=== PATIENT | male | born 1935 ===

== ENCOUNTER 2017-08-08 18:57 | Emergency (ER) | payer MEDICARE, BC ==
[2017-08-08 19:20] VITALS: BP 70/49
[2017-08-08] MEDS ORDERED: Sodium Chloride 0.9% 1,000 ML IV ONE (20:14)
[2017-08-08] MEDS ORDERED: Sodium Chloride 0.9% 500 ML IV SCH (20:15)
--- NOTE | 2017-08-08 20:15 | EDM.PDOC ---
ED HPI GENERAL MEDICAL PROBLEM - General Chief Complaint: Neurological Problem Stated Complaint: CAN'T WALK SICK [id number] Time Seen by Provider: 08/08/17 20:10 Source of Information: Reports: Patient, Family History Limitations: Reports: No Limitations - History of Present Illness INITIAL COMMENTS - FREE TEXT/NARRATIVE: pt states been out working in yard suddenly got dizzy felt weak & disoriented no C/P/SOB/VAL[place]INO. family states pt was talking to them but had to help him to the car. presently pt states he feels fine. takes no Rx and states his BP has been lower than normal all his life and has been asked about it before. family states pt been out in the hot sun doing yard work all day and don't know if he' s been drinking enough fluids. Left Shoulder Pain Score (Numeric/FACES): 5 - Related Data Allergies Allergy/AdvReac Type Severity Reaction Status Date / Time No Known Allergies Allergy Verified 08/08/17 19:38 Home Meds: Home Meds . [No Known Home Meds] 08/08/17 [History] Past Medical History Other HEENT History: Nose bleed. Musculoskeletal History: Reports: Arthritis Other Musculoskeletal History: physical therapy for back - Past Surgical History Other GI Surgeries/Procedures: polups removed Social & Family History - Tobacco Use Smoking Status *Q: Never Smoker Second Hand Smoke Exposure: No - Recreational Drug Use Recreational Drug Use: No - Living Situation & Occupation Living situation: Reports: , Alone Occupation: Retired ED ROS GENERAL - Review of Systems Review Of Systems: ROS reveals no pertinent complaints other than HPI. ED EXAM, NEURO - Physical Exam Exam: See Below Exam Limited By: No Limitations General Appearance: Alert, WD/WN, No Apparent Distress Eye Exam: Bilateral Eye: PERRL (pupils ER @ 4mm) Ears: Hearing Grossly Normal Throat/Mouth: Normal Voice, No Airway Compromise Head Exam: Atraumatic Neck: Non-Tender, Full Range of Motion Respiratory/Chest: No Respiratory Distress Cardiovascular: Regular Rate, Rhythm GI/Abdominal: Soft, Non-Tender Neurological: Alert, Normal Mood/Affect, Normal Gait, No Motor/Sensory Deficits , Oriented x 3 Psychiatric: Normal Affect, Normal Mood Skin Exam: Warm, Dry, Normal Color Course - Vital Signs Last Recorded V/S: Last Vital Signs Temp 36.5 C 08/08/17 19:14 Pulse 82 08/08/17 19:14 Resp 18 08/08/17 19:14 BP 70/49 L 08/08/17 19:14 Pulse Ox 96 08/08/17 19:14 Orthostatic Blood Pressure [ 93/48 Standing] Orthostatic Blood Pressure [ 89/60 Sitting] Orthostatic Blood Pressure [ 99/55 Supine] - Orders/Labs/Meds Orders: Active Orders 24 hr Category Date Time Status EKG Documentation Completion [RC] STAT Care 08/08/17 19:36 Active Sodium Chloride 0.9% [Normal Saline] 1,000 ml Med 08/08/17 20:14 Active IV .BOLUS Medication Orders Sodium Chloride (Normal Saline) 1,000 mls @ 999 mls/hr IV .BOLUS ONE Stop: 08/08/17 21:14 Last Admin: 08/08/17 20:15 Dose: 999 mls/hr Labs: Laboratory Tests 08/08/17 08/08/17 Range/Units 19:35 19:55 WBC 6.8 (5.0-10.0) 10^3/uL RBC 3.98 L (4.6-6.2) 10^6/uL Hgb 12.9 L (14.0-18.0) g/dL Hct 39.3 L (40.0-54.0) % MCV 98.7 (80-100) fL MCH 32.4 (27.0-34.0) pg MCHC 32.8 L (33.0-35.0) g/dL Plt Count 209 (150-450) 10^3/uL Neut % (Auto) 63.9 (42.2-75.2) % Lymph % (Auto) 23.0 (20.5-50.1) % [place] % (Auto) 7.5 (2-8) % Eos % (Auto) 5.0 H (1.0-3.0) % Baso % (Auto) 0.6 (0.0-1.0) % Sodium 137 (135-145) mmol/L Potassium 3.7 (3.6-5.0) mmol/L Chloride 107 (101-111) mmol/L Carbon Dioxide 22.0 (21.0-31.0) mmol/L Anion Gap 11.7 BUN 15 (7-18) mg/dL Creatinine 1.4 H (0.6-1.3) mg/dL Est Cr Clr Drug Dosing 37.22 mL/min Estimated GFR (MDRD) 49 BUN/Creatinine Ratio 10.71 Glucose 126 H (74-105) mg/dL Calcium 8.6 (8.4-10.2) mg/dl Total Bilirubin 0.4 (0.2-1.0) mg/dL AST 24 (10-42) IU/L ALT 20 (10-60) IU/L Alkaline Phosphatase 89 (42-121) IU/L Total Protein 7.0 (6.7-8.2) g/dl Albumin 3.6 (3.2-5.5) g/dl Globulin 3.4 Albumin/Globulin Ratio 1.06 Meds: Medications Generic Name Dose Route Start Last Admin Trade Name Freq PRN Reason Stop Dose Admin Sodium Chloride 1,000 mls @ 999 mls/hr 08/08/17 20:14 08/08/17 20:15 Normal Saline IV 08/08/17 21:14 999 mls/hr .BOLUS ONE Administration Discontinued Medications Generic Name Dose Route Start Last Admin Trade Name Freq PRN Reason Stop Dose Admin Sodium Chloride 500 mls @ 999 mls/hr 08/08/17 20:15 Normal Saline IV .BOLUS SUKHDEV - Re-Assessments/Exams Free Text/Narrative Re-Assessment/Exam: 08/08/17 20:48 re-exam; still feels good. Departure - Departure Time of Disposition: 20:49 Disposition: Home, Self-Care 01 Condition: Good Clinical Impression: TIA (transient ischemic attack) Qualifiers: Transient cerebral ischemia type: unspecified Qualified Code(s): G45.9 - Transient cerebral ischemic attack, unspecified - Discharge Information Instructions: Transient Ischemic Attack, [id number] Forms: ED Department Discharge Additional Instructions: 1) rest and avoid straining bending lifting next 48 hours 2) see clinic or family doctor Thursday for follow up 3) recheck if there is any change or concern 4) may take aspirin 81mg daily until see clinic - My Orders Last 24 Hours: My Active Orders 08/08/17 19:36 EKG Documentation Completion [RC] STAT 08/08/17 20:14 Sodium Chloride 0.9% [Normal Saline] 1,000 ml IV .BOLUS - Assessment/Plan Last 24 Hours: My Active Orders 08/08/17 19:36 EKG Documentation Completion [RC] STAT 08/08/17 20:14 Sodium Chloride 0.9% [Normal Saline] 1,000 ml IV .BOLUS
--- NOTE | 2017-08-11 08:14 | EKG ---
08[facility]08/2017- [facility]: EKG per my reading, shows sinus rhythm at the rate of 83. MOD /[id number]
== END 2017-08-08 20:59 | disposition home or self-care (01) ==
LOC: DL.ED 18:57
DX: G45.9 Transient cerebral ischemic attack, unspecified (principal)
CPT/HCPCS: 36415; 70450; 80053; 85025; 93005; 93010; 96360; 99284; J7030

== ENCOUNTER 2021-10-12 11:01 | Emergency (ER) | payer MEDICARE, BC ==
[2021-10-12 12:24] VITALS: BP 168/89; PULSE 81
== END 2021-10-12 12:39 | disposition home or self-care (01) ==
LOC: DL.ED 11:01
DX: H10.12 Acute atopic conjunctivitis, left eye (principal)
CPT/HCPCS: 99282

== ENCOUNTER 2022-10-13 00:40 | Inpatient (IN) | payer MEDICARE, BC ==
[2022-10-13] MEDS ORDERED: Dexamethasone 4 MG/ML SDV IVPUSH ONE (01:02)
[2022-10-13] MEDS ORDERED: Albuterol/Ipratropium 3.0-0.5 MG/3 ML Neb Soln NEB ONE ×3 (01:02→01:03)
[2022-10-13] MEDS ORDERED: Benzonatate 100 MG Cap PO ONE (01:03)
[2022-10-13] MEDS ORDERED: guaiFENesin/Dextromethorphan 100-10 MG/5 ML Soln 5 ML Cup PO ONE (01:03)
[2022-10-13 01:24] LABS: BASOPHILS PERCENT AUTO 0.7 % (0.0-1.0); EOSINOPHILS PERCENT AUTO 18.4 % (1.0-3.0); HEMATOCRIT 41.1 % (40.0-54.0); HEMOGLOBIN 13.2 g/dL (14.0-18.0); LYMPHOCYTES PERCENT AUTO 20.1 % (20.5-50.1); MEAN CORPUSCULAR HEMOGLOBIN 30.6 pg (27.0-34.0); MEAN CORPUSCULAR HGB CONC 32.1 g/dL (33.0-35.0); MEAN CORPUSCULAR VOLUME 95.4 fL (80-100); MONOCYTES PERCENT AUTO 9.1 % (2-8); NEUTROPHILS PERCENT AUTO 51.7 % (42.2-75.2); PLATELET COUNT,PLT 218 10^3/uL (150-450); RED BLOOD CELL COUNT 4.31 10^6/uL (4.6-6.2); WHITE BLOOD CELL COUNT,WBC 9.2 10^3/uL (5.0-10.0)
[2022-10-13 01:34] LABS: O2 DELIVERY DEVICE ROOM AIR
[2022-10-13 01:35] LABS: BASE EXCESS ARTERIAL -4 mmol/L ((-2)-(+3)); BICARBONATE,ARTERIAL 21.3 mmol/L (22-26); O2 SATURATION ARTERIAL 98 % (95-100); PCO2 ARTERIAL 41 mmHg (35-45); PH,ARTERIAL 7.33 (7.35-7.45); PO2 ARTERIAL 93 mmHg (70-100)
[2022-10-13 01:36] LABS: ALLEN TEST POSITIVE
[2022-10-13 01:44] LABS: BLOOD UREA NITROGEN,BUN 14 mg/dL (7-18); CALCIUM 9.1 mg/dL (8.5-10.1); CARBON DIOXIDE,CO2 26 mmol/L (21-32); CHLORIDE,CL 103 mmol/L (98-107); CREATININE 1.39 mg/dL (0.70-1.30); GLUCOSE RANDOM 109 mg/dL (70-99); SODIUM,NA 139 mmol/L (136-145)
[2022-10-13 01:47] LABS: ESTIMATED GFR 50 mL/min (>=60)
[2022-10-13 01:50] LABS: B-TYPE NATRIURETIC PEPTIDE,BNP 68 pg/ml (0-100)
[2022-10-13] MEDS ORDERED: Levofloxacin/Dextrose 5%-Water 750 MG in Premix Bag 1 BAG IV ONE (03:59)
[2022-10-13] MEDS ORDERED: Morphine 2 MG/ML SYRINGE IVPUSH ONE (06:06)
[2022-10-13] MEDS ORDERED: Naloxone 2 MG/2 ML Syringe IVPUSH PRN (06:06)
[2022-10-13] MEDS ORDERED: Acetaminophen 325 MG Tab PO PRN (06:21)
[2022-10-13] MEDS ORDERED: Acetaminophen/HYDROcodone 325-5 MG Tab PO PRN (06:21)
[2022-10-13] MEDS ORDERED: Sodium Chloride 0.9% 10 ML Syringe FLUSH PRN (06:24)
[2022-10-13] MEDS ORDERED: Ondansetron 4 MG/2 ML SDV IVPUSH PRN (06:24)
[2022-10-13] MEDS ORDERED: Polyethylene Glycol 3350 Powder 17 GM Packet PO PRN (06:24)
[2022-10-13] MEDS ORDERED: Albuterol/Ipratropium 3.0-0.5 MG/3 ML Neb Soln NEB PRN (06:24)
[2022-10-13] MEDS: methylPREDNISolone Sodium Succinate 125 MG/2 ML SDV IVPUSH SCH ×4 (06:24→23:34)
[2022-10-13] MEDS ORDERED: Magnesium Hydroxide 400 MG/5 ML Susp 30 ML Cup PO PRN (06:24)
[2022-10-13] MEDS ORDERED: Morphine 2 MG/ML SYRINGE IVPUSH PRN (06:24)
[2022-10-13] MEDS ORDERED: Sennosides/Docusate Sodium 50-8.6 MG Tab PO PRN (06:24)
[2022-10-13] MEDS ORDERED: Metoprolol Tartrate 5 MG/5 ML SDV IVPUSH PRN (06:28)
[2022-10-13] MEDS ORDERED: Acetylcysteine 20% 200 MG/ML 30 ML Nebulizer Soln SDV INH SCH (09:00)
[2022-10-13] MEDS: guaiFENesin 600 MG Tab.ER PO SCH ×2 (10:07→20:09)
[2022-10-13] MEDS: cefTRIAXone 1 GM Vial IVPUSH SCH (10:07)
[2022-10-13] MEDS: Azithromycin 500 MG in Sodium Chloride 0.9% 250 ML IV SCH (10:08)
[2022-10-13] MEDS: Sodium Chloride 0.9% 10 ML Syringe FLUSH SCH ×2 (10:12→20:30)
[2022-10-13] MEDS: Albuterol/Ipratropium 3.0-0.5 MG/3 ML Neb Soln NEB SCH ×4 (10:57→23:31)
[2022-10-13] MEDS: Acetylcysteine 20% 200 MG/ML 30 ML Nebulizer Soln SDV INH SCH ×2 (15:08→18:36)
[2022-10-13] MEDS: Montelukast 10 MG Tab PO SCH (20:09)
[2022-10-13] MEDS: Melatonin 3 MG Tab PO PRN (20:09)
[2022-10-13] MEDS: Formoterol/Mometasone 200-5 MCG 8.8 GM Inhaler IH SCH (20:13)
[2022-10-13] MEDS: Brimonidine 0.2% Ophth Soln 5 ML Bottle EYEBOTH SCH (20:14)
[2022-10-13] MEDS: Dorzolamide/Timolol 2%-0.5% Ophth Soln 10 ML Bottle EYEBOTH SCH (20:15)
[2022-10-13] MEDS ORDERED: diphenhydrAMINE 50 MG/ML SDV IVPUSH SCH (21:00)
[2022-10-13] MEDS ORDERED: Non-Formulary Medication 1 Each (Budesonide/Formoterol 6 GM Inhaler) INH SCH (21:00)
[2022-10-14] MEDS: Albuterol/Ipratropium 3.0-0.5 MG/3 ML Neb Soln NEB SCH ×5 (03:33→20:29)
[2022-10-14 06:10] LABS: BASOPHILS PERCENT AUTO 0.1 % (0.0-1.0); HEMATOCRIT 36.4 % (40.0-54.0); HEMOGLOBIN 12.1 g/dL (14.0-18.0); LYMPHOCYTES PERCENT AUTO 5.3 % (20.5-50.1); MEAN CORPUSCULAR HEMOGLOBIN 30.9 pg (27.0-34.0); MEAN CORPUSCULAR HGB CONC 33.2 g/dL (33.0-35.0); MEAN CORPUSCULAR VOLUME 93.1 fL (80-100); MONOCYTES PERCENT AUTO 2.3 % (2-8); NEUTROPHILS PERCENT AUTO 92.3 % (42.2-75.2); PLATELET COUNT,PLT 208 10^3/uL (150-450); RED BLOOD CELL COUNT 3.91 10^6/uL (4.6-6.2); WHITE BLOOD CELL COUNT,WBC 12.8 10^3/uL (5.0-10.0)
[2022-10-14 06:36] LABS: ALANINE AMINOTRANSFERASE,ALT 20 U/L (16-63); ALKALINE PHOSPHATASE 88 U/L (46-116); ANION GAP 12.4 mEq/L (7-13); ASPARTATE AMNIOTRANSFERASE,AST 18 U/L (15-37); BILIRUBIN TOTAL 0.7 mg/dL (0.2-1.0); BLOOD UREA NITROGEN,BUN 20 mg/dL (7-18); CARBON DIOXIDE,CO2 27 mmol/L (21-32); CHLORIDE,CL 102 mmol/L (98-107); CREATININE 1.54 mg/dL (0.70-1.30); EST CRCL DRUG DOSING (CG) 30.51 mL/min; GLUCOSE RANDOM 148 mg/dL (70-99); MAGNESIUM 2.2 mg/dL (1.8-2.4); POTASSIUM,K 4.4 mmol/L (3.5-5.1); SODIUM,NA 137 mmol/L (136-145)
[2022-10-14 07:27] LABS: ESTIMATED GFR 44 mL/min (>=60)
[2022-10-14 07:28] LABS: A/G RATIO 0.75; C-REACTIVE PROTEIN < 0.2 mg/dL (0.0-0.9)
[2022-10-14 07:34] LABS: CALCIUM > 15.0 mg/dL (8.5-10.1)
[2022-10-14] MEDS: Acetylcysteine 20% 200 MG/ML 30 ML Nebulizer Soln SDV INH SCH ×2 (07:39→15:06)
[2022-10-14] MEDS: Formoterol/Mometasone 200-5 MCG 8.8 GM Inhaler IH SCH (08:02)
[2022-10-14] MEDS ORDERED: Sodium Chloride 0.9% 1,000 ML IV SCH (08:30)
[2022-10-14] MEDS: guaiFENesin 600 MG Tab.ER PO SCH ×2 (08:32→20:20)
[2022-10-14] MEDS: methylPREDNISolone Sodium Succinate 125 MG/2 ML SDV IVPUSH SCH ×2 (08:34→20:13)
[2022-10-14] MEDS: Azithromycin 500 MG in Sodium Chloride 0.9% 250 ML IV SCH (08:35)
[2022-10-14] MEDS: cefTRIAXone 1 GM Vial IVPUSH SCH (08:35)
[2022-10-14] MEDS: Sodium Chloride 0.9% 10 ML Syringe FLUSH SCH ×2 (08:52→20:17)
[2022-10-14] MEDS: Dorzolamide/Timolol 2%-0.5% Ophth Soln 10 ML Bottle EYEBOTH SCH (09:16)
[2022-10-14] MEDS: Brimonidine 0.2% Ophth Soln 5 ML Bottle EYEBOTH SCH (09:17)
[2022-10-14] MEDS ORDERED: methylPREDNISolone Sodium Succinate 125 MG/2 ML SDV IVPUSH SCH (14:00)
[2022-10-14] MEDS ORDERED: Benzonatate 100 MG Cap PO PRN (14:00)
[2022-10-14 18:26] LABS: ANION GAP 15.3 mEq/L (7-13); CREATININE 1.46 mg/dL (0.70-1.30); EST CRCL DRUG DOSING (CG) 32.18 mL/min; POTASSIUM,K 4.3 mmol/L (3.5-5.1)
[2022-10-14] MEDS: Montelukast 10 MG Tab PO SCH (20:17)
[2022-10-14] MEDS: Loratadine 10 MG Tab PO SCH (20:21)
[2022-10-14] MEDS: Melatonin 3 MG Tab PO PRN (20:21)
[2022-10-15] MEDS: Albuterol/Ipratropium 3.0-0.5 MG/3 ML Neb Soln NEB SCH ×9 (00:04→22:08)
[2022-10-15] MEDS: hydrALAZINE 20 MG/ML SDV IVPUSH PRN ×2 (00:04→23:04)
[2022-10-15] MEDS: Brimonidine 0.2% Ophth Soln 5 ML Bottle EYEBOTH SCH ×3 (00:32→20:49)
[2022-10-15] MEDS: Dorzolamide/Timolol 2%-0.5% Ophth Soln 10 ML Bottle EYEBOTH SCH ×3 (00:33→20:50)
[2022-10-15] MEDS: Formoterol/Mometasone 200-5 MCG 8.8 GM Inhaler IH SCH ×4 (00:33→20:48)
[2022-10-15] MEDS: Acetylcysteine 20% 200 MG/ML 30 ML Nebulizer Soln SDV INH SCH ×4 (03:04→17:32)
[2022-10-15 06:17] LABS: BASOPHILS PERCENT AUTO 0.1 % (0.0-1.0); HEMATOCRIT 37.2 % (40.0-54.0); HEMOGLOBIN 12.4 g/dL (14.0-18.0); LYMPHOCYTES PERCENT AUTO 4.3 % (20.5-50.1); MEAN CORPUSCULAR HEMOGLOBIN 31.1 pg (27.0-34.0); MEAN CORPUSCULAR HGB CONC 33.3 g/dL (33.0-35.0); MEAN CORPUSCULAR VOLUME 93.2 fL (80-100); MONOCYTES PERCENT AUTO 5.6 % (2-8); PLATELET COUNT,PLT 229 10^3/uL (150-450); RED BLOOD CELL COUNT 3.99 10^6/uL (4.6-6.2); WHITE BLOOD CELL COUNT,WBC 14.8 10^3/uL (5.0-10.0)
[2022-10-15 06:39] LABS: ALANINE AMINOTRANSFERASE,ALT 28 U/L (16-63); ALKALINE PHOSPHATASE 77 U/L (46-116); ASPARTATE AMNIOTRANSFERASE,AST 28 U/L (15-37); BILIRUBIN TOTAL 0.5 mg/dL (0.2-1.0); BLOOD UREA NITROGEN,BUN 26 mg/dL (7-18); BUN/CREATININE RATIO 16.7 (No establ ref range); CALCIUM 8.8 mg/dL (8.5-10.1); CARBON DIOXIDE,CO2 22 mmol/L (21-32); CHLORIDE,CL 105 mmol/L (98-107); CREATININE 1.56 mg/dL (0.70-1.30); EST CRCL DRUG DOSING (CG) 30.11 mL/min; GLUCOSE RANDOM 137 mg/dL (70-99); MAGNESIUM 2.4 mg/dL (1.8-2.4); PROTEIN TOTAL,TP 6.7 g/dL (6.4-8.2); SODIUM,NA 139 mmol/L (136-145)
[2022-10-15 06:40] LABS: ESTIMATED GFR 43 mL/min (>=60)
[2022-10-15 06:41] LABS: A/G RATIO 0.81; C-REACTIVE PROTEIN < 0.2 mg/dL (0.0-0.9)
[2022-10-15] MEDS: guaiFENesin 600 MG Tab.ER PO SCH ×2 (09:22→20:44)
[2022-10-15] MEDS: Azithromycin 500 MG in Sodium Chloride 0.9% 250 ML IV SCH (09:26)
[2022-10-15] MEDS: methylPREDNISolone Sodium Succinate 125 MG/2 ML SDV IVPUSH SCH ×2 (09:28→20:53)
[2022-10-15] MEDS: cefTRIAXone 1 GM Vial IVPUSH SCH (09:29)
[2022-10-15] MEDS: Sodium Chloride 0.9% 10 ML Syringe FLUSH SCH ×3 (09:29→20:52)
[2022-10-15] MEDS ORDERED: Sodium Chloride 0.9% 1,000 ML IV SCH (16:30)
[2022-10-15] MEDS: Montelukast 10 MG Tab PO SCH (20:43)
[2022-10-15] MEDS: Melatonin 3 MG Tab PO PRN ×2 (20:44→22:22)
[2022-10-15] MEDS: Loratadine 10 MG Tab PO SCH (20:44)
[2022-10-16] MEDS: Albuterol/Ipratropium 3.0-0.5 MG/3 ML Neb Soln NEB SCH (05:01)
[2022-10-16 06:06] LABS: BASOPHILS PERCENT AUTO 0.1 % (0.0-1.0); HEMATOCRIT 39.6 % (40.0-54.0); HEMOGLOBIN 12.9 g/dL (14.0-18.0); LYMPHOCYTES PERCENT AUTO 2.8 % (20.5-50.1); MEAN CORPUSCULAR HEMOGLOBIN 30.8 pg (27.0-34.0); MEAN CORPUSCULAR HGB CONC 32.6 g/dL (33.0-35.0); MEAN CORPUSCULAR VOLUME 94.5 fL (80-100); MONOCYTES PERCENT AUTO 5.6 % (2-8); NEUTROPHILS PERCENT AUTO 91.5 % (42.2-75.2); PLATELET COUNT,PLT 236 10^3/uL (150-450); RED BLOOD CELL COUNT 4.19 10^6/uL (4.6-6.2); WHITE BLOOD CELL COUNT,WBC 14.9 10^3/uL (5.0-10.0)
[2022-10-16 06:21] LABS: ALANINE AMINOTRANSFERASE,ALT 43 U/L (16-63); ALBUMIN 3.2 g/dL (3.4-5.0); ALKALINE PHOSPHATASE 132 U/L (46-116); ANION GAP 12.5 mEq/L (7-13); ASPARTATE AMNIOTRANSFERASE,AST 33 U/L (15-37); BILIRUBIN TOTAL 0.4 mg/dL (0.2-1.0); BLOOD UREA NITROGEN,BUN 32 mg/dL (7-18); BUN/CREATININE RATIO 21.5 (No establ ref range); CALCIUM 8.4 mg/dL (8.5-10.1); CARBON DIOXIDE,CO2 25 mmol/L (21-32); CHLORIDE,CL 106 mmol/L (98-107); CREATININE 1.49 mg/dL (0.70-1.30); EST CRCL DRUG DOSING (CG) 31.53 mL/min; GLUCOSE RANDOM 151 mg/dL (70-99); MAGNESIUM 2.4 mg/dL (1.8-2.4); POTASSIUM,K 3.5 mmol/L (3.5-5.1); PROTEIN TOTAL,TP 7.2 g/dL (6.4-8.2); SODIUM,NA 140 mmol/L (136-145)
[2022-10-16 06:24] LABS: C-REACTIVE PROTEIN < 0.2 mg/dL (0.0-0.9); ESTIMATED GFR 46 mL/min (>=60)
[2022-10-16 07:14] VITALS: BP 132/64; PULSE 82
== END 2022-10-16 06:45 | disposition home or self-care (01) | DRG 193 ==
LOC: DL.ED 00:40 → UNDOADMIN 04:04 → DL.MS 04:04
PROVIDERS: ADMIT Internal Medicine; ATTEND Internal Medicine
DX: J18.9 Pneumonia, unspecified organism (principal); A41.9 Sepsis, unspecified organism; G92.8 Other toxic encephalopathy; J44.0 Chronic obstructive pulmonary disease with (acute) lower respiratory infection; N17.9 Acute kidney failure, unspecified; J44.1 Chronic obstructive pulmonary disease with (acute) exacerbation; K21.9 Gastro-esophageal reflux disease without esophagitis; N18.31 Chronic kidney disease, stage 3a; G31.84 Mild cognitive impairment of uncertain or unknown etiology; G47.00 Insomnia, unspecified; Z20.822 Contact with and (suspected) exposure to COVID-19; K76.0 Fatty (change of) liver, not elsewhere classified; M54.40 Lumbago with sciatica, unspecified side; M19.90 Unspecified osteoarthritis, unspecified site; G89.29 Other chronic pain; M54.9 Dorsalgia, unspecified; Z77.098 Contact with and (suspected) exposure to other hazardous, chiefly nonmedicinal, chemicals; N52.9 Male erectile dysfunction, unspecified; T38.3X5A Adverse effect of insulin and oral hypoglycemic [antidiabetic] drugs, initial encounter; Z79.899 Other long term (current) drug therapy; Z87.891 Personal history of nicotine dependence; Z86.73 Personal history of transient ischemic attack (TIA), and cerebral infarction without residual deficits; Z98.49 Cataract extraction status, unspecified eye; Z99.81 Dependence on supplemental oxygen; Z79.51 Long term (current) use of inhaled steroids
CPT/HCPCS: 36415; 36600; 71045; 80048; 82803; 83880; 84484; 85025; 87804 ×2; 93005; 93010; 96374; 99285; 99291; A9270 ×2; J1100; U0002; 80053; 83735; 86140; 87040; 87070; 87205; 94010; 94060; 94640; 94664; 94667; 94668; 94762; 97161-GP; 97165-GO; 97530-GP; 99223; 99233; 99238; J0360; J0456; J0696; J1200; J1956; J2270; J2930; J3490; J7030; J7050; J7620-GY